=== PATIENT | female | born 1950 | race Caucasian/White ===

== ENCOUNTER 2021-05-06 15:49 | Emergency (ER) | payer OTHER, MEDICAID ==
[~2021-05-06] VITALS: Ht 149.9 cm; Wt 77.1 kg
[2021-05-06 16:00] VITALS: BP 157/93
--- NOTE | 2021-05-06 16:43 | NUR ---
PT AMBULATED TO BED 11
--- NOTE | 2021-05-06 16:50 | NUR ---
70 YO FEMALE BIBS WITH C/O ABD PAIN 06/06 THIS AM WITH NAUSEA/VOMITING/DIARRHEA. DENIES PAIN AT THIS TIME, STATES "I FEEL FINE". ACCORDING TO PT, LAST NIGHT SHE ATE A PIZZA, [place] WITH SALT, AND A CUP OF SODA AT AROUND 1AM. SHE FELL ASLEEP AND WOKE UP TODAY WITH THE ABD PAIN. SHE VOMITED X1 TODAY, COLOR NORMAL TO PT, DENIES BLOOD OR COFFEE GROUND EMESIS. SHE HAD DIARRHEA TODAY, COLOR NORMAL TO PATIENT. PATIENT SAYS NOW THAT FOOD IS OUT OF STOMACH SHE FEELS BETTER. SHE TOOK 2 SPOON FULLS OF PEPTO BISMOL TODAY. MEDHX: DENIES ALLERIGES: PENICILLIN
[2021-05-06 17:05] VITALS: BP 157/93
--- NOTE | 2021-05-06 17:05 | NUR ---
Patient discharged with v/s stable. Written and verbal after care instructions given and explained. Patient verbalized understanding. Ambulatory with steady gait. All questions addressed prior to discharge. Advised to follow up with PMD.
== END 2021-05-06 17:05 | disposition home or self-care (01) ==
LOC: MED 15:49
DX: R10.84 Generalized abdominal pain (principal); Z88.0 Allergy status to penicillin
CPT/HCPCS: 99281